=== PATIENT | male | born 1985 | race Caucasian/White ===

== ENCOUNTER 2016-09-20 01:01 | Emergency (ER) | payer MEDICAID ==
[2016-09-20] MEDS ORDERED: LIDOCAINE 1% MDV 20 ML ONE (01:11)
== END 2016-09-20 01:29 | disposition home or self-care (01) ==
LOC: ER 01:01
DX: S61.210A Laceration without foreign body of right index finger without damage to nail, initial encounter (principal); W25.XXXA Contact with sharp glass, initial encounter; Y92.009 Unspecified place in unspecified non-institutional (private) residence as the place of occurrence of the external cause; Z79.899 Other long term (current) drug therapy; I10 Essential (primary) hypertension